=== PATIENT | male | born 1970 | race Caucasian/White ===

== ENCOUNTER 2017-07-17 09:43 | Inpatient (IN) ==
--- NOTE | 2017-07-17 11:00 | CT ---
EXAM: CT abdomen pelvis without contrast HISTORY: Right flank pain, right lower quadrant pain, appendectomy COMPARISON: None TECHNIQUE: CT abdomen and pelvis performed without intravenous contrast. Coronal and sagittal refor matted images obtained. FINDINGS: Lung bases clear. No free air. No acute abnormalities of the bones. Degenerate change i n the spine. The heart normal in size. Liver markedly decreased in attenuation. Gallbladder appear s normal. Pancreas appears normal. Spleen appears normal. 2 mm right renal calculus and two adjace nt left renal calculi measuring up to 4 mm. No hydronephrosis. Mild bilateral perinephric stranding likely senescent change. No calculi visualized in the normal course of the ureters. Bladder only m ildly distended and poorly evaluated, grossly unremarkable. Prostate normal in size. Small bilatera l fat containing inguinal hernias, left greater than right. Small fat-containing periumbilical herni a. Aorta normal in caliber. Mild atherosclerosis. No lymphadenopathy or ascites. Stomach appears normal. No dilated loops small bowel. Appendix not visualized. History states appendectomy. Mild colonic diverticulosis. Mild posterior subcutaneous edema. IMPRESSION: 1. Bilateral nephrolithiasis. No hydronephrosis. 2. Bilateral perinephric stranding likely represents senescent change. Recommend clinical correlati on for urinary tract infection. 3. Severe hepatic steatosis. 4. Mild colonic diverticulosis.
[2017-07-17] MEDS ORDERED: THIAMINE IM STA (11:13)
[2017-07-17] MEDS ORDERED: VALIUM SYRINGE IVP STA (11:14)
[2017-07-17] MEDS ORDERED: VALIUM SYRINGE IVP PRN (11:14)
[2017-07-17] MEDS ORDERED: ROCEPHIN 1 GM in SODIUM CHLORIDE 50 ML IV STA (11:15)
--- NOTE | 2017-07-17 11:19 | ED.PDOC ---
General ED Provider: Dr. PIPE CUNNINGHAM Chief Complaint: Abdominal Pain Stated Complaint: abdominal pain Time Seen by Physician: 10:00 Mode of Arrival: Walk-In Information Source: Patient Exam Limitations: No limitations Primary Care Provider: JATINDER SETH Nursing and Triage Documentation Reviewed and Agree: Yes Reviewed sepsis parameters & appropriate labs ordered?: Yes System Inflammatory Response Syndrome: Not Applicable Sepsis Protocol: For patient's 13 years and over: Temp is 96.8 and below OR 101 and greater Pulse >90 BPM Resp >20/minute Acutely Altered Mental Status Are patient's symptoms suggestive of a new infection, such as: -Pneumonia -Skin, Soft Tissue -Endocarditis -UTI -Bone, Joint Infection -Implantable Device -Acute Abdominal Infection -Wound Infection -Meningitis -Blood Stream Catheter Infection -Unknown System Inflammatory Response Syndrome: Not Applicable GI Complaint Exam - Abdominal Pain Complaint/Exam Onset: Gradual Duration: 1 day Symptoms Are: Still present Initial Severity: Moderate Current Severity: Moderate Location of Pain: RLQ Radiates To: Reports: RLQ Character: Reports: Aching Aggravating: Reports: None Alleviating: Reports: Rest Associated Signs and Symptoms: Reports: Back pain. Denies: Diaphoresis, Fever, Cough, Chest pain, Dizziness, Constipation, Blood in stool, Dysuria, Urinary frequency, Decreased urine output, Decreased appetite, Discharge, Nausea, Vomiting, Diarrhea, Decreased activity Related History: Reports: Similar episode (renal stone issues ) AAA Risk Factors: Reports: Hypertension Cardiac Risk Factors: Reports: Hypertension Testicular Torsion Risk Factors: Reports: None Surgical Obstruction Risk Factors: Reports: None Related Surgical History: Reports: Appendectomy Abdominal Findings: Present: None Differential Diagnoses: Bowel Obstruction, Constipation, Diverticulitis, Pancreatitis, Renal Colic, Ureteral Stone Review of Systems - Review Of Systems Constitutional: Reports: No symptoms Eyes: Reports: No symptoms Ears, Nose, Mouth, Throat: Reports: No symptoms Respiratory: Reports: No symptoms Cardiac: Reports: No symptoms GI: Reports: Abdominal pain : Reports: No symptoms Musculoskeletal: Reports: Back pain Skin: Reports: No symptoms Neurological: Reports: No symptoms Endocrine: Reports: No symptoms Hematologic/Lymphatic: Reports: No symptoms All Other Systems: Reviewed and Negative Past Medical History - Past Medical History Previously Healthy: Yes Endocrine: Reports: None Cardiovascular: Reports: Hypertension Respiratory: Reports: None Hematological: Reports: None Gastrointestinal: Reports: None Genitourinary: Reports: Kidney stones Neuro/Psych: Reports: None Musculoskeletal: Reports: None Cancer: Reports: None - Surgical History General Surgical History: Reports: None - Family History Family History: Reports: None - Social History Smoking Status: Current every day smoker, Heavy tobacco smoker Hx Substance Use: No Alcohol Screening: Heavy Physical Exam - Physical Exam Appearance: Well-appearing, No pain distress, Well-nourished Eyes: CHLOÉ, EOMI, Conjunctiva clear ENT: Ears normal, Nose normal, Oropharynx normal Respiratory: Airway patent, Breath sounds clear, Breath sounds equal, Respirations nonlabored Cardiovascular: RRR, Pulses normal, No rub, No murmur GI/: Soft, Nontender, No masses, Bowel sounds normal, No Organomegaly Musculoskeletal: Normal strength, ROM intact, No edema, No calf tenderness Skin: Warm, Dry, Normal color Neurological: Sensation intact, Motor intact, Reflexes intact, Cranial nerves intact, Alert, Oriented Psychiatric: Affect appropriate, Mood appropriate Interpretation - Radiology Interpretation Radiology Interpretation By: Radiologist Radiology Results: Positive (renal stones bilateral and stranding) Physician Notification - Case Discussed Physician Notified: rosalind Time of Notification: 11:19 Admit To: Inpatient Critical Care Note - Critical Care Note Total Time (mins): 0 Course - Course Hematology/Chemistry: 07/17/17 10:20 07/17/17 10:20 Orders, Labs, Meds: Lab Review 07/17/17 07/17/17 07/17/17 10:08 10:20 10:20 WBC 8.58 RBC 5.04 Hgb 15.3 Hct 43.5 MCV 86.3 MCH 30.4 MCHC 35.2 RDW Coeff of Satya 13.3 Plt Count 235 Immature Gran % (Auto) 0.3 Neut % (Auto) 68.6 Lymph % (Auto) 22.4 [place] % (Auto) 8.2 Eos % (Auto) 0.0 Baso % (Auto) 0.5 Immature Gran # (Auto) 0.0 Neut # 5.9 Lymph # 1.9 [place] # 0.7 Eos # 0.0 Baso # 0.0 Sodium 140 Potassium 3.1 L Chloride 100 Carbon Dioxide 26 Anion Gap 17.1 BUN 11 Creatinine 0.70 Estimated GFR (MDRD) 122.00 BUN/Creatinine Ratio 15.71 Glucose 121 H Calcium 9.2 Total Bilirubin 0.8 AST 76 H ALT 94 H Alkaline Phosphatase 109 Total Protein 7.7 Albumin 4.8 Globulin 2.9 Albumin/Globulin Ratio 1.66 Amylase 59 Lipase 61 Urine Color Yellow Urine Clarity Clear Urine pH 6.5 Ur Specific [place] 1.020 Urine Protein Trace Urine Glucose (UA) Negative Urine Ketones 2+ Urine Blood Trace-intact Urine Nitrite Negative Urine Bilirubin Negative Urine Urobilinogen 0.2 Ur Leukocyte Esterase Negative Urine Microscopic RBC 5-10 Ur Squamous Epith Cells Not present Urine Mucus 1+ Orders Category Date Time Status ADMIT PATIENT INPATIENT .TO MEDSURG (MONITORED BED) ADMISSION 07/17/17 11: 15 Ordered ACTIVITY .BR with BRP CARE 07/17/17 11:15 Ordered INTAKE & OUTPUT Q8HR CARE 07/17/17 11:15 Ordered TELEMETRY MONITORING TELE CARE 07/17/17 11:16 Ordered VITAL SIGNS Q8HR CARE 07/17/17 11:15 Ordered REGULAR DIET DIETARY 07/17/17 Lunch Ordered Mental Health Consult [ED MENTAL HEALTH CONSULT] .ONCE EMERGENCY 07/17/17 10: 48 Active AMYLASE Stat LAB 07/17/17 10:20 Completed CBC W/ AUTO DIFF DAILY@0600 LAB 07/18/17 06:00 Ordered CBC W/ AUTO DIFF DAILY@0600 LAB 07/19/17 06:00 Ordered CBC W/ AUTO DIFF Stat LAB 07/17/17 10:20 Completed COMPREHENSIVE METABOLIC PANEL DAILY@0600 LAB 07/18/17 06:00 Ordered COMPREHENSIVE METABOLIC PANEL DAILY@0600 LAB 07/19/17 06:00 Ordered COMPREHENSIVE METABOLIC PANEL Stat LAB 07/17/17 10:20 Completed ETOH LEVEL [BLOOD ALCOHOL] Stat LAB 07/17/17 10:55 Received LIPASE Stat LAB 07/17/17 10:20 Completed UA [URINALYSIS C & S IF INDICATED] Stat LAB 07/17/17 10:08 Completed Amlodipine Besylate [Norvasc] MEDS 07/18/17 09:00 Ordered 5 mg PO DAILY Ceftriaxone Sodium [Rocephin] 1 gm MEDS 07/17/17 11:15 Ordered 0.9 % Sodium Chloride [Sodium Chloride] 50 ml IV ONCE Diazepam Syringe [Valium Syringe] MEDS 07/17/17 11:14 Stat 2 mg IVP ONCE STA Diazepam Syringe [Valium Syringe] MEDS 07/17/17 11:14 Ordered 2 mg IVP Q6H PRN Losartan Potassium MEDS 07/18/17 09:00 Ordered 50 mg PO DAILY NS BANANA BAG @ 125 ML/HR MEDS 07/17/17 11:30 Ordered Sodium Chloride 0.9% [Sodium Chloride] 1,000 ml Folic Acid 1 mg Mvi, Adult No.1 with Vit K [Infuvite Adult] 10 ml Vitamin B-1 Inj [Thiamine] 100 mg IV 125 mls/hr Vitamin B-1 Inj [Thiamine] MEDS 07/17/17 11:13 Stat 100 mg IM ONCE STA CT ABD/PEL WO RENAL STONE PROT Stat RADS 07/17/17 10:12 Completed Medications Generic Name Dose Route Start Last Admin Trade Name Stephen PRN Reason Stop Dose Admin Amlodipine Besylate 5 mg 07/18/17 09:00 Norvasc PO DAILY JESUS Diazepam 2 mg 07/17/17 11:14 Valium Syringe IVP Q6H PRN Agitation Folic Acid 1 mg/ Multivitamins 1,011.2 mls @ 125 mls/hr 07/17/17 11:30 /Minerals 10 ml/ Thiamine HCl IV 100 mg/ Sodium Chloride .Q8H6M JESUS Ceftriaxone Sodium 1 gm/ 50 mls @ 75 mls/hr 07/17/17 11:15 Sodium Chloride IV 07/17/17 11:54 ONCE STA Non-Formulary Medication 50 mg 07/18/17 09:00 Losartan Potassium PO DAILY JESUS Discontinued Medications Generic Name Dose Route Start Last Admin Trade Name Stephen PRN Reason Stop Dose Admin Diazepam 2 mg 07/17/17 11:14 Valium Syringe IVP 07/17/17 11:15 ONCE STA Thiamine HCl 100 mg 07/17/17 11:13 Thiamine IM 07/17/17 11:14 ONCE STA Vital Signs: Temp Pulse Resp BP Pulse Ox 07/17/17 09:43 99.8 F H 109 H 20 158/105 H 94 L Departure - Departure Time of Disposition: 11:19 Disposition: HOME SELF-CARE Discharge Problem: Abdominal pain Instructions: Flank Pain (ED), Renal Colic (ED), Kidney Stones (ED) Condition: Good Pt referred to PMD for follow-up: Yes IPMP verified?: Yes Additional Instructions: Please call your Family Physician as soon as possible to schedule a follow-up appointment. Allergies/Adverse Reactions: Allergies No Known Allergies Allergy (Unverified 07/17/17 09:53) Home Medications: Ambulatory Orders Amlodipine Besylate 5 mg PO DAILY 07/17/17 Losartan Potassium [Cozaar] 50 mg PO DAILY 07/17/17 Omeprazole 20 mg PO DAILY 07/17/17 Paroxetine HCl [Paroxetine Cr] 12.5 mg PO DAILY 07/17/17
[2017-07-17] MEDS ORDERED: ZOFRAN 4 MG/2 ML IVP STA (11:20)
[2017-07-17] MEDS ORDERED: ROCEPHIN ONE (11:22)
[2017-07-17 13:30] VITALS: BMI 37.3
[2017-07-17] MEDS: FOLIC ACID 1 MG, INFUVITE ADULT 10 ML, THIAMINE 100 MG in SODIUM CHLORIDE 1,000 ML IV SCH (13:32)
[2017-07-17] MEDS ORDERED: POTASSIUM CHLORIDE 20 MEQ VIAL-ADDITIVE ONLY 20 MEQ in SODIUM CHLORIDE 100 ML IV STA (14:00)
[2017-07-17] MEDS ORDERED: GI COCKTAIL PO PRN (14:04)
[2017-07-17] MEDS ORDERED: GI COCKTAIL PO STA (14:04)
[2017-07-17] MEDS ORDERED: POTASSIUM CHLORIDE 20 MEQ VIAL-ADDITIVE ONLY IV ONE (14:30)
[2017-07-17] MEDS ORDERED: CARAFATE PO SCH (14:30)
[2017-07-17] MEDS: NICODERM 21 MG TD SCH (14:31)
[2017-07-17] MEDS: LIBRIUM PO PRN ×2 (14:32→21:46)
[2017-07-17] MEDS: ATIVAN IVP PRN ×2 (15:38→23:27)
[2017-07-17] MEDS: CARAFATE PO SCH ×2 (17:25→21:38)
[2017-07-17] MEDS: FOLIC ACID 1 MG, INFUVITE ADULT 10 ML, THIAMINE 100 MG in SODIUM CHLORIDE 0.9%-KCL 20 M... IV SCH (21:38)
[2017-07-18] MEDS ORDERED: FOLIC ACID ONE ×2 (06:38→06:39)
[2017-07-18] MEDS ORDERED: INFUVITE ADULT IV ONE ×2 (06:38→06:40)
[2017-07-18] MEDS ORDERED: THIAMINE ONE (06:40)
[2017-07-18] MEDS: CARAFATE PO SCH ×4 (06:42→21:17)
[2017-07-18] MEDS: FOLIC ACID 1 MG, INFUVITE ADULT 10 ML, THIAMINE 100 MG in SODIUM CHLORIDE 0.9%-KCL 20 M... IV SCH (06:54)
[2017-07-18] MEDS ORDERED: K-DUR PO STA (08:48)
[2017-07-18] MEDS ORDERED: COZAAR PO SCH (09:00)
[2017-07-18] MEDS ORDERED: PRILOSEC PO SCH (09:00)
[2017-07-18] MEDS ORDERED: PAROXETINE HCL 12.5 MG PO SCH (09:00)
[2017-07-18] MEDS ORDERED: NON-FORMULARY MEDICATION (Omeprazole [Omeprazole] 20 MG) PO SCH (09:00)
[2017-07-18] MEDS ORDERED: NON-FORMULARY MEDICATION (Losartan Potassium 50 MG) PO SCH (09:00)
[2017-07-18] MEDS: NORVASC PO SCH (09:47)
[2017-07-18] MEDS: TESTOSTERONE 1.25 GM TD SCH (09:48)
[2017-07-18] MEDS: PAXIL PO SCH (09:48)
[2017-07-18] MEDS: NICODERM 21 MG TD SCH (09:49)
[2017-07-18] MEDS: HYDROCHLOROTHIAZIDE PO SCH (10:31)
[2017-07-18] MEDS ORDERED: DEMEROL 25 MG/ML VIAL IVP PRN (12:59)
[2017-07-18] MEDS ORDERED: ZOFRAN 4 MG/2 ML IVP PRN (13:00)
[2017-07-18] MEDS: ATIVAN IVP PRN (13:45)
[2017-07-18] MEDS ORDERED: LOPRESSOR IVP STA (21:33)
[2017-07-18] MEDS: FOLIC ACID 1 MG, INFUVITE ADULT 10 ML, THIAMINE 100 MG in SODIUM CHLORIDE 1,000 ML IV SCH (21:39)
[2017-07-19] MEDS: CARAFATE PO SCH ×4 (05:37→21:41)
[2017-07-19] MEDS: PRILOSEC PO SCH (05:38)
[2017-07-19] MEDS ORDERED: K-DUR PO STA ×2 (08:07→15:47)
[2017-07-19] MEDS ORDERED: POTASSIUM CHLORIDE PREMIX RUN 10 MEQ in PREMIX 100 ML WATER 1 BAG IV STA ×2 (08:08→11:45)
[2017-07-19] MEDS: HYDROCHLOROTHIAZIDE PO SCH (08:19)
[2017-07-19] MEDS: PAXIL PO SCH (08:19)
[2017-07-19] MEDS: NORVASC PO SCH (08:19)
[2017-07-19] MEDS: NICODERM 21 MG TD SCH (08:19)
[2017-07-19] MEDS: COZAAR PO SCH (08:19)
[2017-07-19] MEDS: TESTOSTERONE 1.25 GM TD SCH (08:29)
--- NOTE | 2017-07-19 10:55 | US ---
EXAM: Ultrasound abdomen limited HISTORY: Elevated LFTs COMPARISON: None TECHNIQUE: Limited ultrasound abdomen right upper quadrant was performed FINDINGS: Pancreas poorly visualized secondary bowel gas shadowing. Liver is enlarged. Liver diffu sely increased in echogenicity. Portions of the liver obscured secondary to shadowing artifact. Ma in portal vein patent with normal direction of flow. Gallbladder fluid-filled without gallbladder wa ll thickening, pericholecystic fluid, or shadowing gallstones. No biliary duct dilation with common bile duct measuring 0.4 cm. IMPRESSION: 1. Hepatomegaly. Hepatic steatosis. 2. Normal sonographic appearance of the gallbladder.
[2017-07-19] MEDS: TOPROL XL PO SCH (16:10)
[2017-07-20] MEDS: PRILOSEC PO SCH (05:45)
[2017-07-20] MEDS: CARAFATE PO SCH ×2 (06:36→10:50)
[2017-07-20] MEDS: COZAAR PO SCH (08:02)
[2017-07-20] MEDS: NORVASC PO SCH (08:03)
[2017-07-20] MEDS: PAXIL PO SCH (08:03)
[2017-07-20] MEDS: TOPROL XL PO SCH (08:03)
[2017-07-20] MEDS: HYDROCHLOROTHIAZIDE PO SCH (08:03)
[2017-07-20] MEDS: NICODERM 21 MG TD SCH (08:04)
[2017-07-20] MEDS: TESTOSTERONE 1.25 GM TD SCH (08:07)
[2017-07-20 10:25] VITALS: BP 136/88; TEMP 97
--- NOTE | 2017-07-26 09:15 | HP ---
DATE OF SERVICE: 07/17/17 CHIEF COMPLAINT: Right flank pain. HISTORY OF PRESENT ILLNESS: The patient came to the emergency room with right flank pain, nausea, vomiting and not able to keep anything down. The patient had been had been doing binge alcohol for three to four days. He started vomiting and not able to keep anything down. He was weak, tired along with abdominal pain, so the patient came to the emergency room. The patient was seen by Dr. Hoyos in the emergency room. White count was normal. Potassium 3.1, AST and ALT slightly elevated at 76 and 94. Blood alcohol was done which was not available at the time of the admission. CT of abdomen and pelvis showed the right sided perinephric stranding and pyelonephritis. At that time, with the right sided pain and perinephric stranding, the patient was admitted to the hospital with right sided acute pyelonephritis per CT scan. He was started on the IV antibiotics and banana bag. REVIEW OF SYSTEMS: CONSTITUTIONAL: Weakness, tiredness. No fever, no chills. HEENT: Normal. ENDOCRINE: No weight gain; no weight loss. CVS: No chest pain. No PND, no orthopnea. No shortness of breath. No PND, no orthopnea. RESPIRATORY: No cough, no congestion. No hemoptysis. GI: Nausea and vomiting. Right flank pain and abdominal cramping. No melena. : No hematuria. No polyuria. MUSCULOSKELETAL: No joint swelling. PSYCHIATRIC: Not anxious. No depression. No suicidal thoughts. No homicidal thoughts. SKIN: Intact, no open lesions. PAST MEDICAL HISTORY: Hypertension Dyslipidemia GERD History of kidney stones Depression Anxiety PAST SURGICAL HISTORY: Appendectomy PERSONAL HISTORY: Drinks alcohol and binges. No smoking and no drugs. . FAMILY HISTORY: Significant for the hypertension. HOME MEDICATIONS: Cozaar, Amlodipine, Omeprazole, AndroGel, Paxil and Hydrochlorothiazide. ALLERGIES: No known drug allergies. PHYSICAL EXAMINATION: V/S: Blood pressure 158/105, respiratory rate 20, heart rate 109, temperature 97.8, saturation 94. HEENT: Atraumatic, normocephalic. No scleral icterus. Mucosa dry. NECK: Supple. No JVD, no bruit. No lymphadenopathy. No thyromegaly. HEART: S1, S2 normal. No murmur. No cyanosis or clubbing. No ascites. LUNGS: Decreased and clear. No rales or rhonchi. ABDOMEN: Soft, nontender. Bowel sounds are active. Right CVA tenderness present. No rigidity or guarding. EXTREMITIES: No pedal edema. No cyanosis or clubbing MUSCULOSKELETAL: Normal joints, no swelling. NEUROLOGIC: The patient is awake and alert. SKIN: Intact; no open lesions. LYMPHATIC: No lymph nodes palpable. LABS: White count 8.58, hemoglobin 15.3, hematocrit 43.4, platelet count 235, sodium 140, potassium 3.1, chloride 100, bicarb 26, BUN 11, creatinine 0.70, glucose 121, AST 76, ALT 96. ASSESSMENT: 1. ACUTE NAUSEA AND VOMITING, PROBABLY FROM THE COLIC GASTRITIS 2. ELEVATED LIVER ENZYMES 3. HYPOKALEMIA 4. RIGHT SIDED FLANK PAIN WITH PYELONEPHRITIS ON CT SCAN 5. HYPERTENSION, LABILE PLAN: 1. Admit the patient to the regular floor. 2. CBC, CMP today and daily. 3. Cardiac enzymes and Troponin. 4. IV fluids with potassium. 5. Banana bag. 6. Librium. 7. Ativan. 8. Zofran prn. TIME SPENT: MORE THAN 70 minutes MTDD
--- NOTE | 2017-07-26 09:34 | DS ---
DATE OF SERVICE: 07/20/17 FINAL DIAGNOSIS: 1. ALCOHOL INTOXICATION 2. ABDOMINAL PAIN 3. HYPERTENSION, LABILE 4. HISTORY OF DYSLIPIDEMIA 5. APPENDECTOMY 6. HISTORY OF KIDNEY STONES 7. DEPRESSION 8. ANXIETY PLAN: 1. Discharge the patient home. 2. Medications changes: Metoprolol succinate 50 mg was started Losartan increased to 100 mg from 50 mg Thiamine 100 mg p.o. daily was given 3. Continue the rest of the home medication: Amlodipine 5 mg p.o. daily Hydrochlorothiazide 25 mg p.o. daily Omeprazole 40 mg p.o. daily Paxil 20 mg p.o. daily Testosterone AndroGel daily 4. Diet: Cardiac and healthy. No salt diet. 5. Activity: As much as tolerated. DISEASE SPECIFIC EDUCATION: About the alcohol, dehydration, hepatic cirrhosis was discussed and he verbalized understanding. Alcohol Anonymous group was advised. The patient does not want to participate at this time. Instructed to control the blood pressure and the risk of stroke was discussed. HOSPITAL COURSE: Rolo Meadows came to the emergency room with acute alcohol intoxication and epigastric pain. The patient's blood pressure has been labile. We had increased the Cozaar to 100 mg from 50 mg, IV fluid with banana bag was given. Librium was given. With the given treatment, the patient started feeling better. AST was elevated at 76 and went up to 129. ALT went to 133. Assumed to be from the alcohol and alcoholic hepatitis. With the given treatment and the Metoprolol was started with 50 mg p.o. daily, which did really control the blood pressure. Meanwhile, the patient was tolerating the food and did not have any problems. He was up and about and walking. The patient's mother was in the room. As the patient was feeling better and the blood pressure was being controlled, at that time he is being discharged to home. TIME SPENT: MORE THAN 65 MINUTES MTDD
== END 2017-07-20 13:24 | disposition home or self-care (01) | DRG 897 ==
LOC: ED 09:43 → MEDSURG A 11:19
PROVIDERS: ADMIT Emergency Medicine; ATTEND Emergency Medicine
DX: F10.129 Alcohol abuse with intoxication, unspecified (principal); R10.31 Right lower quadrant pain; K70.10 Alcoholic hepatitis without ascites; I10 Essential (primary) hypertension; E78.5 Hyperlipidemia, unspecified; F41.8 Other specified anxiety disorders; F17.210 Nicotine dependence, cigarettes, uncomplicated; Z87.442 Personal history of urinary calculi; Z90.49 Acquired absence of other specified parts of digestive tract; Z79.899 Other long term (current) drug therapy
CPT/HCPCS: 36415; 74176; 80053; 80307; 81001; 82150; 83690; 83735; 84132; 85025; 96365; 96375; 99284